=== PATIENT | female | born 1955 | race Caucasian/White ===

== ENCOUNTER 2019-03-10 11:12 | Emergency (ER) | payer MEDICARE ==
[~2019-03-10] VITALS: Ht 162.6 cm; Wt 75.3 kg
== END 2019-03-10 12:50 | disposition home or self-care (01) ==
LOC: ED 11:12
DX: S09.90XA Unspecified injury of head, initial encounter (principal); S00.93XA Contusion of unspecified part of head, initial encounter; W18.30XA Fall on same level, unspecified, initial encounter
CPT/HCPCS: 99283